=== PATIENT | female | born 1955 | race Caucasian/White ===

== ENCOUNTER 2021-06-10 16:58 | Inpatient (IN) | payer BC, SELFPAY ==
[~2021-06-10] VITALS: Ht 170.2 cm; Wt 61.2 kg
--- NOTE | 2021-06-10 19:06 | NUR ---
PT BIBA FROM HOME FOR C/O PROGRESSIVELY WORSE SOB. STATES WAS TESTED FOR COVID ON 05/20 AND TSTED POSITIVE, HAS BEENSYMPTOMATIC TILL , NOW AGAIN WITH SOB. PT CURRENTLY TACYHPNIC AT 31 BREATHS/MIN, ON 02-6L VIA NC AT 88%. DR RAYMOND CALLED INTO ROOM TO ASSESS PT. PT REPORTS ASTHMA HISTORY, COMPLIANT WITH MEDS. SKIN W//D/I. ACCESORY MUSCLE USE OTED. IV SL TO RT HAND, WAIITNG FOR ER MD ORDERS.
[2021-06-10] MEDS ORDERED: DEXAMETHASONE SOD PHOSPHATE 4 MG/ML VIAL IVP ONE (19:15)
[2021-06-10 19:16] VITALS: BP_SYST 145
[2021-06-10 19:50] LABS: BASOPHILS # (AUTO) 0.1 K/uL (0.0-0.2); EOSINOPHILS # (AUTO) 0.1 K/uL (0.0-0.4); EOSINOPHILS % (AUTO) 0.4 % (0.0-4.0); HEMOGLOBIN 12.9 g/dL (12.0-16.0); LYMPHOCYTES # (AUTO) 1.4 K/uL (1.0-5.5); MONOCYTES # (AUTO) 0.7 K/uL (0.0-1.0); RED CELL DISTRIBUTION WIDTH 13.4 % (9.0-15.0)
[2021-06-10 19:53] LABS: CALCIUM 8.8 mg/dL (8.4-11.0); CREATININE 0.9 mg/dL (0.55-1.30); POTASSIUM 4.1 mmol/L (3.5-5.1)
[2021-06-10 19:59] LABS: ALBUMIN 2.6 g/dL (3.4-4.8); TOTAL BILIRUBIN 0.7 mg/dL (0.0-1.0)
--- NOTE | 2021-06-10 20:00 | NUR ---
PT SITTING UP IN BED, ON 07-18L VIA NC @ 97%, REPORTS FEELING BETTER AFTER IV MEDICATION.
[2021-06-10 20:04] LABS: BASOPHILS % (AUTO) 0.5 % (0.0-2.0); HEMATOCRIT 38.4 % (36-48); LYMPHOCYTES % (AUTO) 10.4 % (20.5-51.5); MEAN CORPUSCULAR HEMOGLOBIN 30 pg (27-31); MEAN CORPUSCULAR HGB CONC 34 % (32-36); MEAN CORPUSCULAR VOLUME 88 fL (79.0-98.0); MONOCYTES % (AUTO) 5.1 % (1.7-9.3); NEUTROPHILS # (AUTO) 11.2 K/uL (1.8-7.7); NEUTROPHILS % (AUTO) 83.6 % (40.0-70.0); PLATELET COUNT (AUTO) 444 K/uL (130-430); RED BLOOD CELL COUNT(AUTO) 4.34 MIL/uL (4.2-6.2); WHITE BLOOD COUNT (AUTO) 13.4 K/uL (4.8-10.8)
[2021-06-10 20:14] LABS: C-REACTIVE PROTEIN QUANT 14.4 mg/dL (0-0.5)
[2021-06-10] MEDS ORDERED: LEVOFLOXACIN IN DEXTROSE 5 % 100 ML IV ONE ×2 (21:15→21:42)
--- NOTE | 2021-06-10 21:16 | NUR ---
PT WITH EYES CLOSED, SLIGHTLY TACHYPNIC AT 22-24 BREATHS /MIN. WILL CONT TO MONITOR CLOSELY.
[2021-06-10] MEDS ORDERED: POTASSIUM CHLORIDE 20 MEQ TAB.PRT.SR PO PRN (21:30)
[2021-06-10] MEDS ORDERED: MAGNESIUM SULFATE 50 ML IV PRN (21:30)
[2021-06-10] MEDS ORDERED: MUPIROCIN 2% TOPICAL OINTMENT 22 GM NS PRN (21:30)
[2021-06-10] MEDS ORDERED: LORazepam 2 MG/ML VIAL IVP PRN (21:30)
[2021-06-10] MEDS ORDERED: ACETAMINOPHEN 325 MG TABLET PO PRN (21:30)
[2021-06-10] MEDS ORDERED: ZOLPIDEM TARTRATE 5 MG TABLET PO PRN (21:30)
[2021-06-10] MEDS ORDERED: ONDANSETRON HCL 4 MG/2 ML VIAL IVP PRN (21:30)
[2021-06-10] MEDS ORDERED: AZITHROMYCIN 250 MG TABLET PO ONE (21:30)
[2021-06-10] MEDS ORDERED: DOCUSATE SODIUM 100 MG CAPSULE PO PRN (21:30)
[2021-06-10] MEDS: DECADRON 4 MG TABLET PO SCH (21:30)
[2021-06-10] MEDS: NACL 0.9% 1,000 ML IV SCH (22:10)
[2021-06-10] MEDS ORDERED: AZITHROMYCIN 250 MG TABLET ONE (22:14)
[2021-06-10] MEDS: ENOXAPARIN SODIUM 40 MG/0.4 ML SYRINGE SUBCUT SCH (22:15)
--- NOTE | 2021-06-10 22:30 | NUR ---
ADMISSION ORDERS PROCESSED, PT TACHYPNIC AT 27 BRAETHS/MIN, ON 02- 4L VIA NC AT 94%. DR PEREZ INFORMED. DENIES ANY CP, ONLY MILD SOB. BREATHING EXERCISES EDUCATED, PT VERBALIZED UNDERSTANDING WITH RETURN DEMONSTRATION. CN MAY INFORMED, PULSE OX NOT WORKING IN ROOM 7, ATTEMPTING TO GET A PORTABLE MONITOR.
--- NOTE | 2021-06-10 23:16 | NUR ---
Patient will be admitted to care of DR MORENO. Admitted to unit. Will go to room . Belongings list completed. Complete and up to date summary report printed. SBAR report to be given at bedside with opportunity for questions.
--- NOTE | 2021-06-10 23:45 | NUR ---
Admission Note Received patient from ER with diagnosis of COVID. Initial Plan of Care discussed-patient verbalized understanding. Oriented to room, call light, pain management and safety.
[2021-06-11] VITALS: BP_SYST 103
--- NOTE | 2021-06-11 02:00 | NUR ---
ROUNDING NOTES Patient resting in bed - no s/s pain or distress noted. Respirations even and unlabored - head of bed elevated 4L NC with extension tubing. IV site patent - no s/s redness, infection, or infiltration. Bed locked and in lowest position. Call light within reach.
--- NOTE | 2021-06-11 03:43 | NUR ---
CONSULTATION PAGED/CALLED Reason for Consultation: COVID PNA Person Who was Notified:KATY Consulting Physician: SRINATH Leather Tooler Specialty: Ordering Physician: JOSH
[2021-06-11 07:14] LABS: BASOPHILS % (AUTO) 0.4 % (0.0-2.0); HEMATOCRIT 36.1 % (36-48); LYMPHOCYTES # (AUTO) 0.7 K/uL (1.0-5.5); LYMPHOCYTES % (AUTO) 10.1 % (20.5-51.5); MEAN CORPUSCULAR HEMOGLOBIN 29 pg (27-31); MEAN CORPUSCULAR HGB CONC 33 % (32-36); MEAN CORPUSCULAR VOLUME 88 fL (79.0-98.0); MONOCYTES # (AUTO) 0.2 K/uL (0.0-1.0); MONOCYTES % (AUTO) 2.8 % (1.7-9.3); NEUTROPHILS # (AUTO) 6.4 K/uL (1.8-7.7); NEUTROPHILS % (AUTO) 86.7 % (40.0-70.0); PLATELET COUNT (AUTO) 367 K/uL (130-430); RED CELL DISTRIBUTION WIDTH 13.1 % (9.0-15.0)
[2021-06-11 07:23] LABS: CALCIUM 8.4 mg/dL (8.4-11.0); CREATININE 0.75 mg/dL (0.55-1.30); POTASSIUM 4.9 mmol/L (3.5-5.1)
[2021-06-11 08:00] VITALS: BP_SYST 110
--- NOTE | 2021-06-11 08:00 | NUR ---
Opening Notes: Patient resting in bed, no s/s pain or distress noted. Respirations even and unlabored, head of bed elevated 4L NC with extension tubing. IV site patent, no s/s redness, infection, or infiltration. Bed locked and in lowest position. Call light within reach, will continue to monitor.
[2021-06-11] MEDS: CHOLECALCIFEROL (VITAMIN D3) 2,000 UNIT TABLET PO SCH (08:51)
[2021-06-11] MEDS: ASCORBIC ACID 500 MG TABLET PO SCH (08:52)
[2021-06-11] MEDS: cefTRIAXone 1 GM in D5W 50 ML IV SCH (08:52)
[2021-06-11] MEDS: AZITHROMYCIN 250 MG TABLET PO SCH (08:52)
[2021-06-11] MEDS: ENOXAPARIN SODIUM 40 MG/0.4 ML SYRINGE SUBCUT SCH (08:53)
[2021-06-11] MEDS ORDERED: ASCORBIC ACID 500 MG TABLET PO SCH (09:00)
[2021-06-11] MEDS ORDERED: CHOLECALCIFEROL (VITAMIN D3) 2,000 UNIT TABLET PO SCH (09:00)
[2021-06-11 11:42] VITALS: BP_SYST 103
[2021-06-11 12:31] LABS: WHITE BLOOD COUNT (AUTO) 7.4 K/uL (4.8-10.8)
[2021-06-11 13:29] LABS: ERYTHROCYTE SEDIMENTATION RATE 88 MM/HR (0-20)
[2021-06-11 15:37] VITALS: BP_SYST 127
--- NOTE | 2021-06-11 16:15 | NUR ---
Pt pull IV out: Pt using the bedside commode and accidently pulled IV out. pt stated they had been sitting there for a few minutes before calling. RN removed IV catheter intact, cleaned the site and noticed a blue like bump under the skin at IV site. Applied gauze and tape, no bleeding, and then applied an ice pack.
[2021-06-11 16:25] LABS: C-REACTIVE PROTEIN QUANT 12.9 mg/dL (0-0.5)
--- NOTE | 2021-06-11 19:01 | NUR ---
Closing notes: Patient resting in bed, no s/s pain or distress noted. Respirations even and unlabored, head of bed elevated 4L NC with extension tubing. IV site patent, no s/s redness, infection, or infiltration. Bed locked and in lowest position. Call light within reach, will endorse to shift nurse manager.
[2021-06-11] MEDS: DECADRON 4 MG TABLET PO SCH (20:08)
[2021-06-11] MEDS: NACL 0.9% 1,000 ML IV SCH (20:10)
[2021-06-12 00:34] VITALS: BP_SYST 101
[2021-06-12] MEDS: NACL 0.9% 1,000 ML IV SCH ×3 (02:06→20:40)
[2021-06-12 07:03] LABS: BASOPHILS % (AUTO) 0.2 % (0.0-2.0); HEMATOCRIT 36.9 % (36-48); HEMOGLOBIN 12.2 g/dL (12.0-16.0); LYMPHOCYTES # (AUTO) 0.9 K/uL (1.0-5.5); LYMPHOCYTES % (AUTO) 8.9 % (20.5-51.5); MEAN CORPUSCULAR HEMOGLOBIN 29 pg (27-31); MEAN CORPUSCULAR HGB CONC 33 % (32-36); MEAN CORPUSCULAR VOLUME 88 fL (79.0-98.0); MONOCYTES # (AUTO) 0.3 K/uL (0.0-1.0); MONOCYTES % (AUTO) 3.3 % (1.7-9.3); NEUTROPHILS # (AUTO) 8.7 K/uL (1.8-7.7); NEUTROPHILS % (AUTO) 87.6 % (40.0-70.0); PLATELET COUNT (AUTO) 441 K/uL (130-430); RED BLOOD CELL COUNT(AUTO) 4.17 MIL/uL (4.2-6.2); RED CELL DISTRIBUTION WIDTH 13.5 % (9.0-15.0); WHITE BLOOD COUNT (AUTO) 9.9 K/uL (4.8-10.8)
[2021-06-12 07:11] LABS: C-REACTIVE PROTEIN QUANT 6.2 mg/dL (0-0.5); CALCIUM 8.5 mg/dL (8.4-11.0); CREATININE 0.76 mg/dL (0.55-1.30); POTASSIUM 5.3 mmol/L (3.5-5.1)
[2021-06-12] MEDS: ENOXAPARIN SODIUM 40 MG/0.4 ML SYRINGE SUBCUT SCH (08:30)
[2021-06-12] MEDS: cefTRIAXone 1 GM in D5W 50 ML IV SCH (08:55)
[2021-06-12] MEDS: ASCORBIC ACID 500 MG TABLET PO SCH (08:56)
[2021-06-12] MEDS: AZITHROMYCIN 250 MG TABLET PO SCH (08:56)
[2021-06-12] MEDS: CHOLECALCIFEROL (VITAMIN D3) 2,000 UNIT TABLET PO SCH (08:56)
[2021-06-12 09:00] VITALS: BP_SYST 110
--- NOTE | 2021-06-12 09:00 | NUR ---
AM ASSESSMENT PT ALERT, ABLE TO EXPRESS BASIC NEEDS, VITAL SIGNS STABLE, IVF INFUSING NS AT 70 ML PER HR, IV SITE CLEAR, CONTINUE TO MONITOR PATIENT.
[2021-06-12 11:22] LABS: ERYTHROCYTE SEDIMENTATION RATE 84 MM/HR (0-20)
[2021-06-12 13:00] VITALS: BP_SYST 100
--- NOTE | 2021-06-12 13:00 | NUR ---
ACTIVITY PT ASSISTED IN GETTING OUT OF HER BED, EMPTIED OUT THE COMMODE AFTER SHE HAD USED IT.
--- NOTE | 2021-06-12 15:00 | NUR ---
Dietitian Recommendations * Regular diet w/ Ensure Enlive TID (ONS yields 1050 kcal/day, 60 gm protein/day) * Encourage increase PO intakes LP, RD Please refer to Nutrition Assessment for details. Addendum: 06/12/21 at [address] Amended: Links added.
[2021-06-12 17:00] VITALS: BP_SYST 114
--- NOTE | 2021-06-12 17:00 | NUR ---
NURSING PT IN BED, DENIES ANY DISCOMFORTS, LAYERS OF BLANKET PROVIDED TO KEEP PT WARM.
[2021-06-12 20:00] VITALS: BP_SYST 102
[2021-06-12] MEDS: DECADRON 4 MG TABLET PO SCH (20:40)
[2021-06-13] VITALS: BP_SYST 112
[2021-06-13 06:55] LABS: BASOPHILS % (AUTO) 0.1 % (0.0-2.0); EOSINOPHILS % (AUTO) 0.1 % (0.0-4.0); HEMATOCRIT 36.1 % (36-48); HEMOGLOBIN 12.1 g/dL (12.0-16.0); LYMPHOCYTES # (AUTO) 0.7 K/uL (1.0-5.5); LYMPHOCYTES % (AUTO) 10.3 % (20.5-51.5); MEAN CORPUSCULAR HEMOGLOBIN 29 pg (27-31); MEAN CORPUSCULAR HGB CONC 34 % (32-36); MEAN CORPUSCULAR VOLUME 88 fL (79.0-98.0); MONOCYTES # (AUTO) 0.2 K/uL (0.0-1.0); MONOCYTES % (AUTO) 2.8 % (1.7-9.3); NEUTROPHILS # (AUTO) 5.8 K/uL (1.8-7.7); NEUTROPHILS % (AUTO) 86.7 % (40.0-70.0); PLATELET COUNT (AUTO) 446 K/uL (130-430); RED BLOOD CELL COUNT(AUTO) 4.11 MIL/uL (4.2-6.2); RED CELL DISTRIBUTION WIDTH 13.5 % (9.0-15.0); WHITE BLOOD COUNT (AUTO) 6.7 K/uL (4.8-10.8)
[2021-06-13 07:03] LABS: C-REACTIVE PROTEIN QUANT 2.8 mg/dL (0-0.5); CALCIUM 8.7 mg/dL (8.4-11.0); CREATININE 0.94 mg/dL (0.55-1.30)
[2021-06-13 08:00] VITALS: BP_SYST 126
--- NOTE | 2021-06-13 08:00 | NUR ---
AM ASSESSMENT PT IN BED, ASSESSED BASIC NEEDS, PROVIDED PT WITH WET WIPES, EMPTIED OUT BEDSIDE COMMODE, VITAL SIGNS STABLE, SHE WATCHES HER O2 SATURATION MOST OF THE TIME WHILE NURSE WORKING IN THE ROOM.
[2021-06-13] MEDS: ENOXAPARIN SODIUM 40 MG/0.4 ML SYRINGE SUBCUT SCH ×2 (08:18→22:06)
[2021-06-13] MEDS: AZITHROMYCIN 250 MG TABLET PO SCH (08:19)
[2021-06-13] MEDS: cefTRIAXone 1 GM in D5W 50 ML IV SCH (08:19)
[2021-06-13] MEDS: ASCORBIC ACID 500 MG TABLET PO SCH (08:19)
[2021-06-13] MEDS: CHOLECALCIFEROL (VITAMIN D3) 2,000 UNIT TABLET PO SCH (08:20)
[2021-06-13 11:52] LABS: ERYTHROCYTE SEDIMENTATION RATE 70 MM/HR (0-20)
[2021-06-13 12:00] VITALS: BP_SYST 103
[2021-06-13] MEDS: NACL 0.9% 1,000 ML IV SCH (12:55)
[2021-06-13 16:00] VITALS: BP_SYST 118
--- NOTE | 2021-06-13 16:00 | NUR ---
HYGIENE BROUGHT IN CLEAN SHEETS AND GOWN, PROVIDED PT WITH WET TOWELS FOR HER PERSONAL HYGIENE, MADE PT COMFORTABLE AFTER CARE.
[2021-06-13 20:20] VITALS: BP_SYST 104
--- NOTE | 2021-06-13 20:20 | NUR ---
Opening notes Pt AAOx4, VSS, afebrile. O2 sat 95% on 6L via NC. IVF infusing at ordered rate L. FA 22G clear and patent. Pt uses bedside commode. Call light within reach. Oral hygiene products provided. To monitor.
[2021-06-13] MEDS: DECADRON 4 MG TABLET PO SCH (22:05)
[2021-06-14 00:40] VITALS: BP_SYST 130
[2021-06-14] MEDS: NACL 0.9% 1,000 ML IV SCH ×2 (02:26→16:32)
--- NOTE | 2021-06-14 06:40 | NUR ---
Closing notes/Lab at bedside Pt awake, no s/s distress noted. O2 sat 94% on 4L NC. Pt had a BM during the shift. IVF infusing at ordered rate L. AC 22G clear and patent. Call light within reach. Safety maintained. To endorse to AM nurse.
[2021-06-14] MEDS: AZITHROMYCIN 250 MG TABLET PO SCH (08:19)
[2021-06-14 08:20] VITALS: BP_SYST 126
[2021-06-14] MEDS: CHOLECALCIFEROL (VITAMIN D3) 2,000 UNIT TABLET PO SCH (08:20)
[2021-06-14] MEDS: ASCORBIC ACID 500 MG TABLET PO SCH (08:20)
--- NOTE | 2021-06-14 08:20 | NUR ---
Routine Scheduled IV abx, subq, and po medications given per order. Patient stable at this time.
[2021-06-14] MEDS: cefTRIAXone 1 GM in D5W 50 ML IV SCH (08:21)
[2021-06-14 08:26] LABS: BASOPHILS % (AUTO) 0.2 % (0.0-2.0); CALCIUM 8.5 mg/dL (8.4-11.0); CREATININE 0.74 mg/dL (0.55-1.30); EOSINOPHILS % (AUTO) 0.1 % (0.0-4.0); HEMATOCRIT 35.9 % (36-48); HEMOGLOBIN 11.7 g/dL (12.0-16.0); LYMPHOCYTES # (AUTO) 1.1 K/uL (1.0-5.5); LYMPHOCYTES % (AUTO) 15.4 % (20.5-51.5); MEAN CORPUSCULAR HEMOGLOBIN 29 pg (27-31); MEAN CORPUSCULAR HGB CONC 33 % (32-36); MEAN CORPUSCULAR VOLUME 89 fL (79.0-98.0); MONOCYTES # (AUTO) 0.2 K/uL (0.0-1.0); MONOCYTES % (AUTO) 3.5 % (1.7-9.3); NEUTROPHILS # (AUTO) 5.5 K/uL (1.8-7.7); NEUTROPHILS % (AUTO) 80.8 % (40.0-70.0); PLATELET COUNT (AUTO) 482 K/uL (130-430); POTASSIUM 4.9 mmol/L (3.5-5.1); RED BLOOD CELL COUNT(AUTO) 4.04 MIL/uL (4.2-6.2); RED CELL DISTRIBUTION WIDTH 13.6 % (9.0-15.0); WHITE BLOOD COUNT (AUTO) 6.9 K/uL (4.8-10.8)
[2021-06-14] MEDS: ENOXAPARIN SODIUM 40 MG/0.4 ML SYRINGE SUBCUT SCH ×2 (08:31→22:05)
--- NOTE | 2021-06-14 10:00 | NUR ---
Routine Patient up to bedside commode and back to bed. Stable at this time with no respiratory distress noted.
[2021-06-14 10:32] LABS: C-REACTIVE PROTEIN QUANT 1.2 mg/dL (0-0.5)
[2021-06-14 12:20] LABS: ERYTHROCYTE SEDIMENTATION RATE 58 MM/HR (0-20)
[2021-06-14 12:40] VITALS: BP_SYST 103
--- NOTE | 2021-06-14 13:25 | NUR ---
Routine Patient resting comfortably in bed with no complaint of pain; stable.
--- NOTE | 2021-06-14 15:00 | NUR ---
Patient up to bedside commode and back to bed. Patient stable with no distress noted.
--- NOTE | 2021-06-14 16:32 | NUR ---
Routine New IVF bag started. Patient stable at this time; resting quietly in bed.
[2021-06-14 16:35] VITALS: BP_SYST 105
--- NOTE | 2021-06-14 17:35 | NUR ---
Routine Patient stable; resting comfortably in bed with eyes closed.
[2021-06-14 21:00] VITALS: BP_SYST 119
--- NOTE | 2021-06-14 21:15 | NUR ---
ASSIST Patient out of bed to BSC back to bed tolerated no SOB noted skin dry warm .
[2021-06-14] MEDS: DECADRON 4 MG TABLET PO SCH (22:03)
[2021-06-15 01:00] VITALS: BP_SYST 128
--- NOTE | 2021-06-15 05:39 | NUR ---
URINE COLLECTED & SENT TO LAB .
[2021-06-15] MEDS: cefTRIAXone 1 GM in D5W 50 ML IV SCH (08:26)
[2021-06-15] MEDS: CHOLECALCIFEROL (VITAMIN D3) 2,000 UNIT TABLET PO SCH (08:26)
[2021-06-15] MEDS: AZITHROMYCIN 250 MG TABLET PO SCH (08:26)
[2021-06-15] MEDS: ASCORBIC ACID 500 MG TABLET PO SCH (08:26)
[2021-06-15 08:30] VITALS: BP_SYST 126
[2021-06-15] MEDS: ENOXAPARIN SODIUM 40 MG/0.4 ML SYRINGE SUBCUT SCH ×2 (08:33→21:08)
[2021-06-15 08:38] LABS: BASOPHILS # (AUTO) 0.1 K/uL (0.0-0.2); EOSINOPHILS % (AUTO) 0.1 % (0.0-4.0); HEMATOCRIT 37.2 % (36-48); HEMOGLOBIN 12.4 g/dL (12.0-16.0); LYMPHOCYTES # (AUTO) 1.1 K/uL (1.0-5.5); LYMPHOCYTES % (AUTO) 16.3 % (20.5-51.5); MEAN CORPUSCULAR HEMOGLOBIN 29 pg (27-31); MEAN CORPUSCULAR HGB CONC 33 % (32-36); MEAN CORPUSCULAR VOLUME 88 fL (79.0-98.0); MONOCYTES # (AUTO) 0.3 K/uL (0.0-1.0); NEUTROPHILS # (AUTO) 5.5 K/uL (1.8-7.7); NEUTROPHILS % (AUTO) 78.6 % (40.0-70.0); PLATELET COUNT (AUTO) 432 K/uL (130-430); RED BLOOD CELL COUNT(AUTO) 4.24 MIL/uL (4.2-6.2); RED CELL DISTRIBUTION WIDTH 13.7 % (9.0-15.0)
--- NOTE | 2021-06-15 08:45 | NUR ---
Routine Scheduled medications given per order. Patient stable at this time.
[2021-06-15 09:03] LABS: CALCIUM 8.6 mg/dL (8.4-11.0); CREATININE 0.78 mg/dL (0.55-1.30); POTASSIUM 5.1 mmol/L (3.5-5.1)
[2021-06-15 09:24] LABS: C-REACTIVE PROTEIN QUANT 0.7 mg/dL (0-0.5)
[2021-06-15 09:46] LABS: BILIRUBIN,URINE NEGATIVE (NEGATIVE); BLOOD, URINE NEGATIVE (NEGATIVE); CLARITY/URINE CLEAR (CLEAR); COLOR,URINE YELLOW (YELLOW); GLUCOSE,URINE NEGATIVE (NEGATIVE); KETONES,URINE NEGATIVE (NEGATIVE); LEUKOCYTE ESTERASE ,URINE NEGATIVE (NEGATIVE); NITRITE, URINE NEGATIVE (NEGATIVE); PH,URINE 5.5 (5.0-8.0); PROTEIN URINE NEGATIVE (NEGATIVE); UROBILINOGEN,URINE 0.2 (0.2-1.0)
--- NOTE | 2021-06-15 10:15 | NUR ---
Routine Patient to bedside commode and back to bed. Stable at this time.
[2021-06-15 12:30] VITALS: BP_SYST 110
[2021-06-15 12:30] LABS: ERYTHROCYTE SEDIMENTATION RATE 52 MM/HR (0-20)
--- NOTE | 2021-06-15 14:15 | NUR ---
Routine Patient stable; resting comfortably in bed with no respiratory distress noted and no complaint of pain.
[2021-06-15] MEDS ORDERED: CEPH250C PO (15:21)
[2021-06-15] MEDS ORDERED: ASPI-858 PO ×2 (15:21)
[2021-06-15] MEDS ORDERED: DEC1 PO ×2 (15:21)
[2021-06-15 16:00] VITALS: BP_SYST 115
--- NOTE | 2021-06-15 16:00 | NUR ---
O2 saturation Prior to 1600: patient on 2L, with saturation at 94% 1600: O2 removed; patient on room air; O2 sat at 92% 1615: patient to bedside commode; sats dropped as low as 88% 1620: during transfer back to bed, sats began to drop 87%, 86%, as low as 79% 1623: patient supine in bed on room air; stats dipped as low as 76% placed back on 2L O2; sats began to climb, back up to 94%
--- NOTE | 2021-06-15 18:00 | NUR ---
Routine Patient sitting in bed; ready to eat dinner. Patient stable throughout shift.
[2021-06-15 21:00] VITALS: BP_SYST 119
[2021-06-15] MEDS: DECADRON 4 MG TABLET PO SCH (21:06)
[2021-06-15] MEDS: NACL 0.9% 1,000 ML IV SCH (21:07)
--- NOTE | 2021-06-15 21:15 | NUR ---
assist patient out of bed to BSC FALL MEASURES implemented no SOB activity tolerated call cochran given to patient .
--- NOTE | 2021-06-15 23:22 | NUR ---
Patient awake on 02 NC @ 2 LPM skin dry warm chest movement symmetrical also 02 SAT 96 % Respirations Regular also unlabored .
[2021-06-16 00:12] VITALS: BP_SYST 125
--- NOTE | 2021-06-16 06:10 | NUR ---
Hourly Rounding patient resting HOB elevated Respirations Remain Regular also unlabored skin dry warm / .
[2021-06-16] MEDS ORDERED: DEC1 PO (08:22)
[2021-06-16] MEDS ORDERED: APIX2.5T PO (08:24)
[2021-06-16 09:00] VITALS: BP_SYST 117
--- NOTE | 2021-06-16 09:00 | NUR ---
Pt resting in bed at 0700, A+Ox4. Pt denies pain. IV noted- IVF infusing- patent. CSMW satisfactory. No headache, dizziness, chest pain, N+T or edema. Lungs diminished. SOBOE and dry cough noted. 2L [employer] 98%. bs x4. LbM Jun 15. void QS- bedside commode. No n+v. No skin concerns. IND with mobility and ADLs. VSS. Med accepting. Pt eager to go home. Will continue to monitor.
[2021-06-16] MEDS: cefTRIAXone 1 GM in D5W 50 ML IV SCH (09:03)
[2021-06-16] MEDS: ASCORBIC ACID 500 MG TABLET PO SCH (09:03)
[2021-06-16] MEDS: CHOLECALCIFEROL (VITAMIN D3) 2,000 UNIT TABLET PO SCH (09:03)
[2021-06-16] MEDS: ENOXAPARIN SODIUM 40 MG/0.4 ML SYRINGE SUBCUT SCH (09:06)
[2021-06-16 12:30] VITALS: BP_SYST 113
--- NOTE | 2021-06-16 14:37 | NUR ---
Discharge Planning: DCP faxed pt referral to [facility] [phone] [facility] [phone], DCP to follow up. Addendum: 06/16/21 at 1455 by Mercedes Avitia DP Per YANIQUE Esteban [phone] will receive delivery, her number given to [facility].
[2021-06-16] MEDS: NACL 0.9% 1,000 ML IV SCH (15:00)
[2021-06-16 16:27] VITALS: BP_SYST 134
--- NOTE | 2021-06-16 18:28 | NUR ---
Pt awaiting home o2 to be delivered then will dc home. No voiced concerns. Pt eager +++++ to get home. Will await for O to arrive. Will continue to monitor.
[2021-06-16 18:58] VITALS: BP_SYST 134
== END 2021-06-16 19:00 | disposition home or self-care (01) | DRG 177 ==
LOC: SED 16:58 → STU 21:29
PROVIDERS: ADMIT General Practice; ATTEND General Practice
DX: U07.1 COVID-19 (principal); J12.82 Pneumonia due to coronavirus disease 2019; J96.91 Respiratory failure, unspecified with hypoxia; G93.41 Metabolic encephalopathy; E44.0 Moderate protein-calorie malnutrition; E87.1 Hypo-osmolality and hyponatremia; D68.59 Other primary thrombophilia; Z68.21 Body mass index [BMI] 21.0-21.9, adult; Z88.1 Allergy status to other antibiotic agents; Z88.5 Allergy status to narcotic agent; Z88.8 Allergy status to other drugs, medicaments and biological substances
CPT/HCPCS: 36415; 71045; 80048; 80053; 81003; 83605; 83735; 83880; 84484; 85025; 85379; 85651-TC; 86140; 87040-TC; 93005; 96374; 99285; G0378; J0696; J1100; J1650; J1956; J7060; J8540; Q0144; U0003